=== PATIENT | female | born 1975 | race Two or more races ===

== ENCOUNTER 2024-01-08 13:27 | Emergency (ER) | payer OTHER ==
[~2024-01-08] VITALS: Ht 165.1 cm; Wt 108.9 kg
[2024-01-08] MEDS ORDERED: TENORMIN50 M1 (13:40)
[2024-01-08] MEDS ORDERED: COZAAR100 MG PO (13:40)
[2024-01-08] MEDS ORDERED: GLUMETZA500 MG (13:41)
[2024-01-08] MEDS ORDERED: MEPERIDINE HCL/PF 50 MG/ML VIAL IM STA ×2 (15:30→16:11)
[2024-01-08] MEDS ORDERED: PROMETHAZINE HCL 50 MG/ML AMPUL IM STA (15:31)
[2024-01-08 16:07] LABS: HEMATOCRIT 39.1 % (36.0-45.00); HEMOGLOBIN 13.1 g/dL (12.0-15.00); MEAN CELL VOLUME 85.9 fL (80.00-100.00); MEAN CORPUSCULAR HEMOGLOBIN 28.7 pg (27.00-32.0); MEAN CORPUSCULAR HGB CONC 33.4 g/dl (32.0-36.0); PLATELET COUNT 266 K/uL (150-450); RED BLOOD COUNT 4.55 M/uL (4.00-6.00); RED CELL DISTRIBUTION WIDTH 13.8 % (11.5-14.5)
[2024-01-08 16:30] LABS: URINE APPEARANCE Cloudy; URINE BILIRRUBIN Negative (NEGATIVE); URINE BLOOD Large; URINE COLOR Yellow; URINE GLUCOSE Negative (NEGATIVE); URINE LEUKOCYTE Moderate; URINE NITRATE Negative; URINE PROTEIN Trace (NEGATIVE); URINE UROBILINOGEN 0.2 E.U./dl
[2024-01-08 16:31] LABS: CREATININE SERUM 0.86 mg/dL (0.55-1.02); GFR 70.73; POTASSIUM 4.73 mEq/L (3.5-5.1)
[2024-01-08 16:33] LABS: URINE EPITHELIAL CELLS 41.4 uL (0.0-38.8); URINE RBC 1691.7 uL (0.0-20.8); URINE WBC 85.6 uL (0.0-23.2)
[2024-01-08 16:56] LABS: URINE MUCUS SCANT
== END 2024-01-08 21:02 | disposition home or self-care (01) ==
LOC: ER 13:27
PROVIDERS: General Practice
DX: N39.0 Urinary tract infection, site not specified (principal); I10 Essential (primary) hypertension; N20.1 Calculus of ureter; N20.0 Calculus of kidney; D25.9 Leiomyoma of uterus, unspecified